=== PATIENT | female | born 1970 | race Caucasian/White ===

== ENCOUNTER 2024-05-07 10:12 | Emergency (ER) | payer BC, SELFPAY ==
[2024-05-07 10:43] VITALS: BP 131/82
--- NOTE | 2024-05-07 10:43 | ED.GENMED ---
ED Provider Triage
<Pino Hickman PA-C - Last Filed: 05/07/24 10:46>
-
Patient seen by provider in Triage?: Seen in Triage
54 yo female presents for L scapular pain radiating to the chest x 2 days. taking NSAIDs without relief. No pleuritic nature of pain. Sick with cold/URI symptoms multiple times within the past month.
Current smoker.
Looks visibly uncomfortable, VSS.
Check cardiac workup including D dimer/EKG, troponin, CXR.
History of Present Illness
<Pino Hickman PA-C - Last Filed: 05/07/24 10:46>
General
Chief Complaint: Chest Problem
Time Seen by Provider: 05/07/24 13:02
<Ramo Kohler Jr., PA-C - Last Filed: 05/08/24 18:16>
General
Source: patient
Exam Limitations: none
Nursing documentation reviewed up to this point in time: agreed with
History of Present Illness
History of Present Illness:
54-year-old female presenting to the emergency department today with concerns of left lateral upper abdomen and lower chest discomfort not specifically tender to palpation but feels to be a deeper sharp and achy seem to start 2 days ago no
associated symptoms no nausea vomiting fevers chest pain shortness of breath no urinary symptoms.
Review of Systems
<Ramo Kohler Jr., PA-C - Last Filed: 05/08/24 18:16>
Review of Systems
Allergies reviewed?: Yes
All Other Systems: ROS reviewed and negative except as documented in HPI and ROS
Phy Exam
<MAY Montes Jr. Last Filed: 05/08/24 18:16>
Physical Exam
Physical Exam:
GENERAL: Alert , in no apparent distress
EYE: pupils equal and reactive
NECK: Supple, no significant adenopathy.
ENT: o/p clr, mmm.
CARDIAC: Regular rate and rhythm .
LUNGS: Clear breath sounds bilaterally, no acute respiratory distress, no wheezes/rales/rhonchi
ABDOMEN: Soft, without focal tenderness, no r/g, no cvat
NEUROLOGICAL: Alert and oriented, no focal neuro deficits
SKIN: Warm and dry, skin intact.
MUSCULOSKELETAL: No edema, well perfused.
PSYCH: Normal and appropriate interaction.
Course
<Pino Hickman PA-C - Last Filed: 05/07/24 10:46>
Orders/Labs/Results
Orders:
Orders
05/07/24 10:45
Electrocardiogram (*1) Urgent
Reason for Study: Chest Pain
05/07/24 10:46
EKG- Treatment ONCE
CR Chest - 2 Views Urgent
Comment:
Reason For Exam: chest pain
05/07/24 10:52
Complete Blood Count/With Diff Urgent
Comprehensive Metabolic Panel Urgent
D-Dimer Urgent
Troponin I Urgent
05/07/24 13:22
CT Abd/pel Without Iv Or Oral Urgent
Comment:
Reason For Exam: left flank pain
0.9% Sodium Chloride 1000 ml [Nss] 1,000 ml IV BOLUS
Ketorolac [Toradol] 15 mg IV NOW STA
05/07/24 14:07
Urinalysis Reflex To Culture Urgent
Date Specimen was Collected: 05/07/24
Time Specimen was Collected: 14:04
Urine Microscopic Reflex Cult Urgent
05/07/24 14:25
Morphine Sulfate 4 mg IV NOW STA
Abnormal Lab Results
05/07/24 05/07/24
10:52 14:07
MCH 32.4 H pg
(27.0-31.0)
Glucose 110 H mg/dl
(70-99)
Ur Occult Blood Reflex 1+ A
(Negative)
Urine RBC 11-15 A /HPF
(0-2)
05/07/24 10:52
05/07/24 10:52
Vital Signs
Initial and Last Documented VS:
Initial Vital Signs
Temp Pulse Resp BP Pulse Ox
98.1 F 116 18 131/82 98
05/07/24 10:43 05/07/24 10:43 05/07/24 10:43 05/07/24 10:43 05/07/24 10:43
Last Documented Vital Signs
Temp Pulse Resp BP Pulse Ox
98.1 F 94 17 109/82 96
05/07/24 10:43 05/07/24 16:19 05/07/24 16:19 05/07/24 16:19 05/07/24 16:19
<Ramo Kohler Jr., PA-C - Last Filed: 05/08/24 18:16>
Orders/Labs/Results
Orders:
Orders
05/07/24 10:45
Electrocardiogram (*1) Urgent
Reason for Study: Chest Pain
05/07/24 10:46
EKG- Treatment ONCE
CR Chest - 2 Views Urgent
Comment:
Reason For Exam: chest pain
05/07/24 10:52
Complete Blood Count/With Diff Urgent
Comprehensive Metabolic Panel Urgent
D-Dimer Urgent
Troponin I Urgent
05/07/24 13:22
CT Abd/pel Without Iv Or Oral Urgent
Comment:
Reason For Exam: left flank pain
0.9% Sodium Chloride 1000 ml [Nss] 1,000 ml IV BOLUS
Ketorolac [Toradol] 15 mg IV NOW STA
05/07/24 14:07
Urinalysis Reflex To Culture Urgent
Date Specimen was Collected: 05/07/24
Time Specimen was Collected: 14:04
Urine Microscopic Reflex Cult Urgent
05/07/24 14:25
Morphine Sulfate 4 mg IV NOW STA
Abnormal Lab Results
05/07/24 05/07/24
10:52 14:07
MCH 32.4 H pg
(27.0-31.0)
Glucose 110 H mg/dl
(70-99)
Ur Occult Blood Reflex 1+ A
(Negative)
Urine RBC 11-15 A /HPF
(0-2)
05/07/24 10:52
05/07/24 10:52
Vital Signs
Initial and Last Documented VS:
Initial Vital Signs
Temp Pulse Resp BP Pulse Ox
98.1 F 116 18 131/82 98
05/07/24 10:43 05/07/24 10:43 05/07/24 10:43 05/07/24 10:43 05/07/24 10:43
Last Documented Vital Signs
Temp Pulse Resp BP Pulse Ox
98.1 F 94 17 109/82 96
05/07/24 10:43 05/07/24 16:19 05/07/24 16:19 05/07/24 16:19 05/07/24 16:19
<Ramo Kohler Jr., MAY - Last Filed: 05/08/24 18:16>
MDM/Problems Addressed
MDM/Problems Addressed:
54-year-old female presenting to the emergency department today with concerns of left lower lateral chest wall and upper abdominal flank discomfort not specifically reproducible lungs clear heart sounds normal no overlying skin changes. Initial
heart rate elevated but otherwise vital signs normal. Improved heart rate with pain medication. D-dimer negative PE very unlikely troponin negative ACS very unlikely EKG nonischemic. Urinalysis did show red blood cells. She does have history of
kidney stones CT scan was then ordered for further assessment. No clear emergent process on CT scan otherwise patient in no obvious distress stable for discharge was advised about the red blood cells in the urine we will follow-up. Return
precautions given.
<Ramo Kohler Jr., PA-C - Last Filed: 05/08/24 18:16>
*Critical Care Note
Total Time (30-74mins, 75-104mins- exclusive of procedures): Not Applicable
ED Attending Note
<Pino Hickman PA-C - Last Filed: 05/07/24 10:46>
-
Portions of this chart may have been created with voice recognition software.� Occasional wrong word or��sound alike� substitutions may have occurred due to the inherent limitations of voice recognition software.
Discharge Plan
Departure
Patient Disposition: Home (Routine Discharge)
Date of Disposition: 05/07/24
Time of Disposition: 15:52
Patient with high blood pressure during this ER visit?: No
Condition: Good
Covid-19: Not Applicable
Discharge Problem:
Acute flank pain
Instructions: Flank Pain ED
Prescriptions:
New
oxycodone-acetaminophen [Endocet] 5-325 mg tablet
1 tab PO Q8H PRN (Reason: Pain) Qty: 7 0RF
Referrals:
Jaye Lopez MD [Family Provider] -
Stand Alone Forms: Return to Work
Activity Restrictions/Additional Instructions:
You came to the emergency department today with concerns of pain to the left flank area. Unclear what the causes. Here you had a reassuring assessment with no emergent findings other than red blood cells in your urine. Please follow close with
the primary care doctor within 1 week. Return to the emergency department for any worsening, new or concerning symptoms.
Interventions
Interventions:
*Risk Screen - Suicide Last Done: 05/07/24 16:20
*General Assessment Last Done: 05/07/24 13:09
*Neglect/Abuse Screening Last Done: 05/07/24 13:09
*Nursing Disposition Last Done: 05/07/24 16:20
ED- Cardiac Assessment Last Done: 05/07/24 13:09
ED- Pulmonary Assessment Last Done: 05/07/24 13:09
Discharge Date and Time
Discharge Date/Time: 05/07/24 16:21
Print Language: KOREAN
[2024-05-07 11:12] LABS: % Basophils 0.8 % (0-2); % Eosinophils 1.4 % (0-6); % Immature Granulocytes 0.3 % (0-0.5); % Lymphocytes 25.4 % (20.5-51.1); % Monocytes 6.4 % (1.7-9.3); % Neutrophils 65.7 % (42.2-75.2); Absolute Basophils 0.1 10^3/uL (0-0.2); Absolute Eosinophils 0.1 10^3/uL (0-0.7); Absolute Monocytes 0.5 10^3/uL (0.1-0.6); Absolute Neutrophils 5.1 10^3/uL (1.4-6.5); Hematocrit 42.8 % (37.0-47.0); Hemoglobin 14.5 g/dL (12.0-16.0); Mean Corp Hgb Conc. 33.9 g/dL (33.0-37.0); Mean Corpuscular Hgb 32.4 pg (27.0-31.0); Mean Corpuscular Volume 95.5 fL (81.0-99.0); Nucleated Red Blood Cells % 0 %; Platelet Count 280 10^3/uL (130-400); Red Blood Cell Count 4.48 10^6/uL (4.20-5.40); Red Cell Dist. Width 12.5 % (11.5-14.5); White Blood Cell Count 7.8 10^3/uL (4.8-10.8)
[2024-05-07 11:19] LABS: ALT (SGPT) 19 U/L (0-35); AST (SGOT) 19 U/L (14-36); Albumin 4.3 g/dl (3.5-5.0); Alkaline Phosphatase 70 U/L (38-126); Blood Urea Nitrogen 17 mg/dl (7-17); Calcium 9.8 mg/dl (8.4-10.2); Carbon Dioxide 23 mmol/L (22-30); Chloride 105 mmol/L (98-107); D-Dimer < 0.27 ug/mlFEU (0.00-0.50); Glucose 110 mg/dl (70-99); Potassium 4.6 mmol/L (3.5-5.1); Sodium 136 mmol/L (135-145); Total Bilirubin 0.7 mg/dl (0.2-1.3); Total Protein 6.9 g/dl (6.3-8.2); eGFR > 60.00
[2024-05-07 11:31] LABS: Troponin I < 0.012 ng/ml
[2024-05-07 13:09] VITALS: BP 118/86
[2024-05-07] MEDS: TORADOL 15 MG IV (13:32)
[2024-05-07] MEDS: NSS 1000 IV (13:33)
[2024-05-07 14:18] LABS: Urine Albumin Negative (Neg - Trace); Urine Bilirubin Negative (Negative); Urine Character Clear (Clear); Urine Color Yellow; Urine Glucose Negative (Negative); Urine Ketone Negative (Negative); Urine Leukocyte Negative (Negative); Urine Nitrite Negative (Negative); Urine Occult Blood 1+ (Negative); Urine Specific Gravity 1.025 (<1.030); Urine Urobilinogen Negative (Neg - 1+)
[2024-05-07] MEDS: MORPHINE SULFATE 4 MG IV (14:31)
[2024-05-07 14:35] LABS: Urine White Cell 0-2 /HPF (0-5)
[2024-05-07 16:19] VITALS: BP 109/82
== END 2024-05-07 16:21 | disposition home or self-care (01) ==
LOC: EMR 10:12
PROVIDERS: Physician Assistant; EMERGENCY PHYSICIAN Emergency Medicine; FAMILY PHYSICIAN Family Medicine
DX: R10.12 Left upper quadrant pain (principal); R07.89 Other chest pain; Z87.442 Personal history of urinary calculi
CPT/HCPCS: 99285; 96374; 96375; 96361; 71046; 74176; 80053; 81003; 81015; 84484; 85025; 85379; 93005